=== PATIENT | female | born 1980 | race Asian ===

== ENCOUNTER → 2024-12-03 08:51 | Outpatient (REF) | payer BC, SELFPAY ==
[2024-12-03 10:31] LABS: Hematocrit 36.5 % (37.0-47.0); Hemoglobin 11.3 g/dL (12.0-16.0); Mean Corp Hgb Conc. 31.0 g/dL (33.0-37.0); Mean Corpuscular Volume 63.1 fL (81.0-99.0); Nucleated Red Blood Cells % 0 %; Platelet Count 253 10^3/uL (130-400); Red Cell Dist. Width 16.7 % (11.5-14.5)
[2024-12-03 10:59] LABS: ALT (SGPT) 14 U/L (0-35); AST (SGOT) 25 U/L (14-36); Albumin 4.3 g/dl (3.5-5.0); Alkaline Phosphatase 24 U/L (38-126); Blood Urea Nitrogen 17 mg/dl (7-17); Calcium 8.8 mg/dl (8.4-10.2); Carbon Dioxide 26 mmol/L (22-30); Chloride 107 mmol/L (98-107); Glucose 92 mg/dl (70-99); HDL Cholesterol 95 mg/dl; LDL Cholesterol, Calculated 74 mg/dl; Potassium 4.6 mmol/L (3.5-5.1); Sodium 138 mmol/L (135-145); Total Protein 7.0 g/dl (6.3-8.2); Very Low Density Lipoprotein 14 mg/dl (0-30); eGFR > 60.00
[2024-12-03 11:03] LABS: Vitamin D, 25-OH*** 33.6 ng/mL (30-80)
[2024-12-03 11:31] LABS: Glycohemoglobin (HgbA1c) 5.3 % (4.0-5.6)
[2024-12-03 14:03] LABS: Hepatitis C Antibody Negative (Negative)
== END ==
LOC: REG 08:51
PROVIDERS: ATTENDING PHYSICIAN Internal Medicine
DX: D56.3 Thalassemia minor (principal); R73.09 Other abnormal glucose; E55.9 Vitamin D deficiency, unspecified; Z13.220 Encounter for screening for lipoid disorders; F33.0 Major depressive disorder, recurrent, mild; Z11.59 Encounter for screening for other viral diseases
CPT/HCPCS: 36415; 80053; 80061; 82306; 83036; 84443; 85025; 86803